=== PATIENT | male | born 1995 | race Caucasian/White ===

== ENCOUNTER 2022-01-07 06:18 | Emergency (ER) | payer MEDICAID ==
[~2022-01-07] VITALS: Ht 170.2 cm; Wt 63.5 kg
[2022-01-07 06:23] VITALS: BP_SYST 117
[2022-01-07 06:49] VITALS: BP_SYST 117
== END 2022-01-07 06:49 | disposition home or self-care (01) ==
LOC: SED 06:18 → EDBD 06:18 → SED 06:49
DX: Z13.9 Encounter for screening, unspecified (principal)
CPT/HCPCS: 99283